=== PATIENT | female | born 1995 | race Caucasian/White ===

== ENCOUNTER 2023-10-21 20:49 | Outpatient (REF) | payer MEDICAID, SELFPAY ==
[2023-10-25 10:09] LABS: Age Gdln ACOG Testing Note (.); IGP, rfx Aptima HPV ASCU Note (.)
== END 2023-10-21 20:50 | disposition home or self-care (01) ==
LOC: LAB 20:49
PROVIDERS: Visit Provider Physician Assistant
DX: Z01.419 Encounter for gynecological examination (general) (routine) without abnormal findings (principal)
CPT/HCPCS: G0145